=== PATIENT | female | born 1935 | race Caucasian/White ===

== ENCOUNTER 2018-03-11 09:28 | Outpatient (CLI) | payer MEDICARE, OTHER ==
[2016-01-18 08:09] VITALS: BP 130/60
--- NOTE | 2018-03-12 18:56 | Diagnostic Imaging Report ---
LUCAS VILLANUEVA [facility] [address] [id number] Report Submission Date: Mar 12, 2018 3:59:13 PM [employer] Patient Study Name: CAROL SCHAEFER Date: Mar 12, 2018 12:00:00 AM [employer] Modality Type: DEXA\OT Gender: F Description: DEXA : 33 Institution: [facility] Physician: LUCAS VILLANUEVA Examination: Bone density History: Assess bone mineralization Comparison exams: None available Technique: DEXA protocol Findings: Average bone mineral density of the left femoral neck: 0.652 grams cm2. T score: -2.8 Average bone mineral density of the right radius: 0.706 grams cm2. T score: -2.0 Impression: Lumbar spine osteoporosis. Radius osteopenia. Electronically signed on Mar 12, 2018 3:59:13 PM [employer] by: Peña RENAE
== END 2018-03-11 09:30 ==
LOC: RAD 09:28
PROVIDERS: ATTEND Clinical Nurse Specialist Medical-Surgical
DX: M81.0 Age-related osteoporosis without current pathological fracture (principal); R26.9 Unspecified abnormalities of gait and mobility; Z87.310 Personal history of (healed) osteoporosis fracture; Z92.241 Personal history of systemic steroid therapy
CPT/HCPCS: 77080